=== PATIENT | male | born 1980 | race Caucasian/White ===

== ENCOUNTER 2016-06-04 15:22 | Emergency (ER) | payer OTHER, MEDICAID ==
[2016-06-04] MEDS ORDERED: IBUPROFEN 600 MG TAB PO ONE (16:20)
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
[2016-06-04 17:02] VITALS: BP 121/66; PULSE 66; RESP 16; TEMP 97.7; O2SAT 95
== END 2016-06-04 17:15 | disposition home or self-care (01) ==
DX: S16.1XXA Strain of muscle, fascia and tendon at neck level, initial encounter (principal); M62.830 Muscle spasm of back; V49.49XA Driver injured in collision with other motor vehicles in traffic accident, initial encounter; Y92.410 Unspecified street and highway as the place of occurrence of the external cause; Y93.89 Activity, other specified